=== PATIENT | female | born 1985 | race Two or more races ===

== ENCOUNTER 2021-02-25 08:56 | Outpatient (CLI) | payer OTHER ==
[2021-02-25 10:10] LABS: HGB - HEMOGLOBIN 11.8 g/dL (12.0-16.0); MEAN CORPUSCULAR HEMOGLOBIN 29.7 pg (27.0-31.0); MEAN CORPUSCULAR HGB CONC 33.7 g/dL (32.0-36.0); MEAN CORPUSCULAR VOLUME 88.2 fL (81.0-99.0); MEAN PLATELET VOLUME 9.8 fL (7.9-10.8); RED BLOOD COUNT 3.97 10^6/uL (4.20-5.40); RED CELL DISTRIBUTION WIDTH 13.2 % (12.0-15.0)
== END 2021-02-25 08:57 | disposition home or self-care (01) ==
LOC: LAB 08:56
PROVIDERS: ATTEND Nurse Practitioner Obstetrics & Gynecology
DX: Z34.90 Encounter for supervision of normal pregnancy, unspecified, unspecified trimester (principal); Z36.89 Encounter for other specified antenatal screening
CPT/HCPCS: 36415; 82950; 85027; 86787

== ENCOUNTER 2021-03-15 18:54 | Outpatient (CLI) | payer OTHER ==
--- NOTE | 2021-03-16 15:59 | Ultrasound Report ---
PROCEDURE: OB Limited INDICATIONS: Plac location not noted on OS report. OUTSIDE/PRIOR DATING DATA: Last menstrual period (LMP): Unknown. LMP-based estimated date of delivery (LEDY): Unknown. First dating scan (date and location): 10/07/2020. Estimated date of delivery (LEDY) from first dating scan: 04/24/2021. TECHNIQUE: Real-time scanning was performed of the fetus, with image documentation. Endovaginal scanning: Not needed COMPARISON: None. FINDINGS: A single living intrauterine gestation is present. Presentation: Vertex Placenta: Placental position is anterior, without previa. Amniotic fluid index: 14.1 cm, 50th percentile for gestational age. heart rate: 144 beats per minutes. Maternal cervical canal: 3.2 cm long; normal length is 2.5 cm or more. Estimated gestational age from initial scan: Reportedly 34 weeks 2 days.. IMPRESSION: Placental location is anterior. Amniotic fluid volume is normal. Cervical length is norm al also, without funneling. Reviewed by: Sarthak Alejandre MD on 03/16/2021 3:58 PM PDT Approved by: Sarthak Alejandre MD on 03/16/2021 3:58 PM PDT Station ID: [id number]
== END 2021-03-15 18:55 | disposition home or self-care (01) ==
LOC: DI 18:54
PROVIDERS: ATTEND Nurse Practitioner Obstetrics & Gynecology
DX: Z34.00 Encounter for supervision of normal first pregnancy, unspecified trimester (principal); Z36.89 Encounter for other specified antenatal screening

== ENCOUNTER 2021-03-26 13:42 | Outpatient (CLI) | payer OTHER ==
[2021-03-26 13:53] LABS: HCT - HEMATOCRIT 35.1 % (37.0-47.0); HGB - HEMOGLOBIN 11.5 g/dL (12.0-16.0); MEAN CORPUSCULAR HEMOGLOBIN 28.5 pg (27.0-31.0); MEAN CORPUSCULAR HGB CONC 32.8 g/dL (32.0-36.0); MEAN CORPUSCULAR VOLUME 87.1 fL (81.0-99.0); MEAN PLATELET VOLUME 10.4 fL (7.9-10.8); RED BLOOD COUNT 4.03 10^6/uL (4.20-5.40); RED CELL DISTRIBUTION WIDTH 13.2 % (12.0-15.0); WHITE BLOOD COUNT 5.8 x10^3/uL (4.8-10.8)
[2021-03-26 14:06] LABS: ALBUMIN/GLOBULIN RATIO 0.8 (1.0-2.2); BILIRUBIN,TOTAL 0.5 mg/dL (0.2-1.0); CALCIUM 8.9 mg/dL (8.5-10.3); CREATININE 0.5 mg/dL (0.4-1.0); POTASSIUM 3.8 mmol/L (3.5-5.0); TOTAL PROTEIN 6.6 g/dL (6.7-8.2)
== END 2021-03-26 13:43 | disposition home or self-care (01) ==
LOC: LAB 13:42
PROVIDERS: ATTEND Nurse Practitioner Obstetrics & Gynecology
DX: I95.9 Hypotension, unspecified (principal)
CPT/HCPCS: 36415; 80053; 85027

== ENCOUNTER 2021-03-30 08:00 | Outpatient (CLI) | payer OTHER | END 2021-03-30 23:59 | disposition home or self-care (01) | LOC: LAB.WC 08:00 | PROVIDERS: ATTEND Nurse Practitioner Obstetrics & Gynecology | DX: Z36.85 Encounter for antenatal screening for Streptococcus B (principal) | CPT/HCPCS: 87797 ==

== ENCOUNTER 2021-04-08 16:53 | Outpatient (CLI) | payer OTHER ==
--- NOTE | 2021-04-09 10:05 | Ultrasound Report ---
PROCEDURE: OB F/U or Repeat INDICATIONS: UTERINE SIZE DISCREPANCY OUTSIDE/PRIOR DATING DATA: Last menstrual period (LMP): Not available. LMP-based estimated date of delivery (LEDY): Not available. First dating scan (date and location): 10/07/2020. Estimated date of delivery (LEDY) from first dating scan: 04/24/2021. TECHNIQUE: Real-time scanning was performed of the fetus, with image documentation and biometric measurements. Endovaginal scanning: Not needed COMPARISON: Vertex FINDINGS: General: A single living intrauterine gestation is present. Presentation: Vertex Placenta: Placental position is anterior, without previa. Amniotic fluid index: 11.6 cm, normal for gestational age. heart rate: 125 beats per minute. Maternal cervical canal: 3.4 cm long; normal length is 2.5 cm or more. biometrics: Biparietal diameter: 9.0 cm, 36 weeks 3 days Head circumference: 32.9 cm, 37 weeks 3 days Abdominal circumference: 33.5 cm, 37 weeks 3 days Femur length: 7.3 cm, 37 weeks 2 days Estimated gestational age from initial scan: 37 weeks 5 days. Composite gestational age from present scan: 37 weeks 1 day Estimated weight and percentile: 3159 g, 48th percentile Measurement variability in biometric dating: +/- 10 days from 12-20 weeks gestation, +/- 2 weeks from 20-30 weeks gestation, +/- 3 weeks at 30 weeks gestation or more. Other: No anomaly seen.. IMPRESSION: Current estimated weight is normal at the 48th percentile. Amniotic fluid volume i s also normal at the 32nd percentile. No anomaly seen. Reviewed by: Sarthak Alejandre MD on 04/09/2021 10:04 AM PDT Approved by: Sarthak Alejandre MD on 04/09/2021 10:04 AM PDT Station ID: [id number]
== END 2021-04-08 16:54 | disposition home or self-care (01) ==
LOC: DI 16:53
PROVIDERS: ATTEND Nurse Practitioner Obstetrics & Gynecology
DX: O26.843 Uterine size-date discrepancy, third trimester (principal); Z3A.37 37 weeks gestation of pregnancy

== ENCOUNTER 2021-04-25 07:35 | Inpatient (IN) | payer OTHER ==
[2021-04-25] MEDS ORDERED: OXYTOCIN 10 UNIT/ML VIAL IM PRN (08:30)
[2021-04-25] MEDS ORDERED: OXYTOCIN/SODIUM CHLORIDE 500 ML IV PRN (08:30)
[2021-04-25] MEDS ORDERED: CARBOPROST TROMETHAMINE 250 MCG/ML AMP IM PRN (08:30)
[2021-04-25] MEDS ORDERED: LIDOCAINE-MPF 1% 30 ML VIAL ID PRN (08:30)
[2021-04-25] MEDS ORDERED: miSOPROStoL 200 MCG TABLET BC PRN (08:30)
[2021-04-25] MEDS ORDERED: SODIUM CHLORIDE FLUSH 0.9% 10 ML SYRINGE IVP PRN (08:30)
[2021-04-25] MEDS ORDERED: ONDANSETRON 4 MG/2 ML VIAL IVP PRN (08:30)
[2021-04-25] MEDS ORDERED: METHYLERGONOVINE 0.2 MG/ML VIAL IM PRN (08:30)
[2021-04-25] MEDS ORDERED: TRANEXAMIC ACID IN NACL 1,000 MG/100 ML BAG IV PRN (08:30)
--- NOTE | 2021-04-25 08:35 | HISTORY & PHYSICAL EXAMINATION ---
Admit History - Visit Reason Visit Reason: Other - : 3 Parity: 2 Premature: 0 Ectopic: 0 : 0 Care: positive: [facility] Risk/History: positive: None Complications This : positive: None Smoking Status: Never smoker - Mother's Labs Mother's Blood Type: positive: A Mother's RH: positive: Positive GBS: positive: Group B Step Negative Rubella Status: positive: Immune Review of Systems - Constitutional Constitutional: denies: Fever, Chills, Malaise - Eyes Eyes: denies: Blurred vision, Spots in vision, Dipolpia - Cardiovascular Cariovascular: denies: Irregular heart rate, Palpitations, Chest pain, Edema - Respiratory Respiratory: denies: Cough, SOB at rest - Gastrointestinal Gastrointestinal: denies: Constipation, Diarrhea, Change in bowel habits - Integumentary Integumentary: denies: Rash, Pruritis - Neurological Neurological: denies: Headache Physical - Abdominal Exam Vital Signs: Temp Pulse Resp BP Pulse Ox 36.7 C 77 16 132/74 H 04/25/21 07:47 04/25/21 07:47 04/25/21 07:47 04/25/21 07:47 Contraction Frequency (min/apart): rare Contraction Intensity: positive: Mild Uterine Resting Tone: positive: Soft - Monitoring Heart Rate Baseline: 125 Strip Review: positive: Category I - Presentation Presentation: positive: Vertex - Vaginal Exam Membranes: positive: Membranes intact Dilation (in cm): 3 Effacement (%): 50 Station: positive: 0 Cervical Position: positive: Posterior - Speculum Exam Speculum Exam Performed: positive: No Findings: positive: Other Plan for Labor - Plan For Labor I expect patient to be DC'd or transferred within 96 hours.: Yes Plan for Labor: HPI: This 35yo @ 40.1wks gestation by 11.4wk U/S and unsure LMP presents to [facility] for elective induction of labor. She denies vaginal bleeding or leakage of fluid. She reports occasional contractions when she is up walking around but denies anything painful or consistent and states they feel more like mindy suarez than real contractions. She reports +FM. She is supported today by her Amador. Upon arrival her cervix was noted to be 3/50/0 and vertex with the head well applied to her cervix. AROM occurred for a moderate amount of clear fluid. She has been a patient of [facility] through the duration of her which has remained uncomplicated. She will be admitted to [facility] for active management. She intends an epidural for pain management. Dating criteria: LMP unknown Initial U/S @ 11.4wks dates with LEDY 04/24/2021 Serial Exams - agree Medications: PNV Allergies: Codeine (critical); Morphine (critical) OB History: G1: 11/18/2015 @ 40.4wks; 7lb1oz female; epidural G2: 10/06/2017 @ 40wks; 6lb 15oz male; epidural G3: current PMHx: endometriosis; high liver enzymes Surgical Hx: cholecystectomy Social Hx: Never smoker. No ETOH or IVDA. Dipika. Family Hx: Diabetes- Father; PGM course: LMP: 07/24/2020 is stated based on 08/07/2021 conception date. Pt unsure of LMP LEDY by LMP: 04/30/2021 Initial U/S @ 11.4wks provides LEDY 04/24/2021 FINAL LEDY: 04/24/2021 A pos/Rubella immune VZV: immune Genetic testing: Panorama - negative; AFP neg FAS: 11/25/2021 - WNL per impression report. 3VC without visual malformations. No mention of placental location - f/u ordered. placenta location f/u US 03/15/2021- Anterior placenta, no previa. Growth US 04/09/21- DAHLIA WNL. EFW 48%tile Glucola 93 Influenza: received outside clinic this season TDAP 02/24/2021 GBS @ 36.3 Negative HSV: denies in self and partner Breast pump Rx- provided MOD: Anticipate ; daughter Pretty, son Steve, Maggi English; It's a GIRL! - no name yet (middle name Marah); desires epidural; ; Hoping for elective IOL 39-40wks for childcare purposes. pp contraception: tubal ligation - on base pap: 10/2020-neg Physical Exam: Normocephalic, atraumatic Heart RRR w/o M/G/R Lungs CTAB Abdomen gravid, soft, nontender EFW 3200g FHR baseline 125, moderate variability, + accels, no decels Rare contractions via tocometry which palpate mild with soft resting tone SVE 3/50/0, posterior, medium consistency. Vertex. AROM moderate amount of clear fluid Bilateral LE's no edema Mood is good. Assessment: 35yo @ 40.1wks gestation by 11.4wk U/S Elective IOL GBS neg FHR Category I Plan: Expectant management x 4 hours, then evaluate for cervical ripening with misoprostol vs pitocin. Continuous monitoring. Encouraged ambulation and position changes. Jacuzzi PRN. Nitrous oxide PRN. Epidural per maternal request. Anticipate .
[2021-04-25 08:43] LABS: BASOPHILS % (AUTO) 0.5 %; EOSINOPHILS # (AUTO) 0.1 10^3/uL (0.0-0.7); EOSINOPHILS % (AUTO) 2.2 %; HCT - HEMATOCRIT 34.8 % (37.0-47.0); HGB - HEMOGLOBIN 11.4 g/dL (12.0-16.0); LYMPHOCYTES # (AUTO) 2.3 10^3/uL (1.5-3.5); LYMPHOCYTES % (AUTO) 35.2 %; MEAN CORPUSCULAR HEMOGLOBIN 27.9 pg (27.0-31.0); MEAN CORPUSCULAR HGB CONC 32.8 g/dL (32.0-36.0); MEAN CORPUSCULAR VOLUME 85.3 fL (81.0-99.0); MONOCYTES # (AUTO) 0.4 10^3/uL (0.0-1.0); MONOCYTES % (AUTO) 6.5 %; NEUTROPHILS # (AUTO) 3.6 10^3/uL (1.5-6.6); NEUTROPHILS % (AUTO) 55.1 %; PLT - PLATELET COUNT 202 10^3/uL (130-450); RED BLOOD COUNT 4.08 10^6/uL (4.20-5.40); RED CELL DISTRIBUTION WIDTH 13.7 % (12.0-15.0); WHITE BLOOD COUNT 6.4 x10^3/uL (4.8-10.8)
[2021-04-25] MEDS ORDERED: LACTATED RINGERS 1,000 ML IV SCH (09:00)
[2021-04-25] MEDS ORDERED: SODIUM CHLORIDE FLUSH 0.9% 10 ML SYRINGE IVP SCH (09:00)
[2021-04-25] MEDS ORDERED: OXYTOCIN/SODIUM CHLORIDE 500 ML IV SCH (13:00)
[2021-04-25] MEDS ORDERED: ROPIVACAINE 0.2% 200 MG/100 ML BAG EP ONE (15:36)
--- NOTE | 2021-04-25 16:04 | PROVIDER PROGRESS NOTE ---
Labor Progress Note - Uterine Monitoring Contraction Frequency (min/apart): 3-4 Contraction Intensity: positive: Moderate Uterine Resting Tone: positive: Soft - Monitoring Monitor Mode: positive: External ultrasound Heart Rate Baseline: 120 Heart Rate Variability: positive: Moderate (6-25 bmp) Accelerations: positive: Present, 15x15 Decelerations: positive: None Strip Review: positive: Category I - Vaginal Exam Dilation (in cm): 5 Effacement (%): 100 Station: 0 Cervical Position: Midposition - Labor Progress Note Labor Progress Note/Additional Text: S: Coping well with contractions at the moment but requests epidural as soon as possible. Her is supportive at the bedside. O: FHR baseline 120, moderate variability, + accels, no decels Contractions palpate moderate every 3-4 minutes with soft resting tone Pitocin @ 4mU/mL A: 35yo @ 40.1wks gestation by 11.4wk U/S GBS neg Active labor FHR Category I P: Anesthesia notified for placement of epidural. Continuous monitoring. Continue pitocin with titration per protocol for induction of labor. Encouraged position changes in bed on peanut ball. Anticipate . Pt verbalized understanding and agrees to above plan. She denies further questions or concerns at this time.
[2021-04-25] MEDS ORDERED: LIDOCAINE-PF 2% 10 ML AMP SUBQ ONE (16:18)
[2021-04-25] MEDS ORDERED: fentaNYL 100 MCG/2 ML VIAL ONE (16:40)
[2021-04-25] MEDS ORDERED: HYDROCORTISONE 1% CREAM 28 GM TUBE PR PRN (17:51)
[2021-04-25] MEDS ORDERED: WITCH HAZEL/GLYCERIN 1 PAD TOP PRN (17:51)
--- NOTE | 2021-04-25 18:07 | DELIVERY NOTE ---
Delivery Note - Labor Labor: positive: Augmented by oxytocin, Induced by oxytocin - Delivery Method Delivery Method: positive: Spontaneous vaginal delivery - Presentation Presentation: positive: Vertex, MICHAEL - left occiput anterior - Nuchal Cord Nuchal Cord: positive: None - Amniotic Fluid Description Amniotic Fluid Description: positive: Clear - Episiotomy Type Episiotomy Type: positive: None - Laceration Laceration: positive: None - Delivery Outcome Delivery Outcome: positive: Livebirth - [place] : positive: Placed in direct skin contact with mother, Stimulated, Warmed , [place] used [place] sex: positive: Female - Cord Cord: positive: 3 vessels - Placenta Placenta: positive: Intact, Spontaneous - Estimated Blood Loss Estimated Blood Loss (in cc): 150 - Post Delivery Events Post Delivery Events: positive: No post delivery events - Delivery Comments (Free Text/Narrative) Delivery Comments (Free Text/Narrative): Labor: This 35yo @ 40.1wks gestation by 11.4wk U/S presented to [facility] on 04/25/2021 for elective induction of labor. Upon arrival cervix was 3/50/0 and vertex. AROM occurred at 0836 and was noted to be a moderate amount of clear fluid. Pitocin initiated for labor augmentation for a maximum infustion rate of 2mU/mL. FHR pattern maintained a Category I pattern throughout labor. Epidural placed per maternal request. Pt progressed to c/c/+1 @ 1729 with onset of pushing at 1731. : Normal of a viable female infant on 04/25/2021 @ 1733. No nuchal cord. The was placed on maternal abdomen, stimulated, dried, and placed skin to skin. 's were 9/9 at 1 and 5 minutes respectively. Ptiocin administered via IV for hemostasis. The umbilical cord was allowed to stop pulsating at which time it was doubly clamped by CNM and cut by FOB. Cord blood was obtained. 3VC. Fundal massage and gentle cord traction applied for active management of the third stage. Placenta delivered spontaneously and intact at 1738. EBL 150mL. Fourth stage: Uterine fundus firm and there is no excessive bleeding. The perineum, vagina, and cervix were inspected and noted to be intact. Skin to skin contact maintained. Family bonding well. Both mother and baby were left in stable condition.
[2021-04-25] MEDS ORDERED: DOCUSATE SODIUM 100 MG CAPSULE PO SCH (21:00)
[2021-04-25] MEDS: IBUPROFEN 800 MG TABLET PO SCH (21:16)
[2021-04-25] MEDS: ACETAMINOPHEN 500 MG TABLET PO SCH (21:16)
[2021-04-26] MEDS: IBUPROFEN 800 MG TABLET PO SCH ×2 (04:15→12:17)
--- NOTE | 2021-04-26 08:40 | Discharge Plan ---
Discharge Plan Problem Reviewed?: Yes Disposition: Home, Self Care Condition: Good Diet: Regular Activity Restrictions: No Restrictions Shower Restrictions: No Driving Restrictions: No Weight Bearing: Full Weight No Smoking: If you smoke, Please STOP! Call for help. Follow-up with: Annabelle Walsh CNM, ARNP [Provider Admit Priv/Credential] -
[2021-04-26 08:48] VITALS: BP 105/60
--- NOTE | 2021-04-26 09:11 | PROVIDER PROGRESS NOTE ---
Subjective - Subjective Subjective: FINAL PROGRESS NOTE: S: Bonding well with baby. without difficulty. Pain well controlled with oral medications. Bleeding decreased and is light. She is ambulating and urinating without difficulty and she is tolerating a regular diet. She desires to be discharged home today at 24 hours . is supportive at the bedside. O: BP 105/60, T 36.6, RR 16, HR 81 Heart RRR w/o M/G/R, lungs CTAB, abdomen soft and nontender with fundus firm at U-1, perineum intact, light lochia rubra, bilateral LE's no edema. A: 35yo -->P3 PPD#1 s/p TSVD viable female infant Normal recovery P: Reviewed pp self care and warning s/sx. Pt has emergency contact number. Encouraged continuation of PNV while Continue taking ibuprofen and tylenol OTC as needed for pain management. F/u in 1 week with myself at [facility] for routine pp visit or sooner PRN. Pt verbalized understanding and agrees to above plan. She denies further questions or concerns at this time. Objective - Vital Signs/Intake & Output Vital Signs: Vital Signs x48h Temp Pulse Resp BP Pulse Ox 04/26/21 08:46 36.6 C 81 16 105/60 100 04/26/21 05:30 76 16 118/80 04/26/21 01:30 88 18 112/72 Intake & Output: Intake & Output 04/23/21 04/24/21 04/25/21 04/26/21 23:59 23:59 23:59 23:59 Intake Total 1000 Output Total 100 Balance 900 - Lab Results Fish Bones: 04/25/21 08:15
--- NOTE | 2021-04-26 09:16 | DISCHARGE SUMMARY ---
Discharge Summary Condition at Discharge: Good Discharge Disposition: 01 Home, Self Care - HOSPITAL COURSE Hospital Course: Date of Admission: 04/25/2021 Date of Discharge: 04/26/2021 Diagnosis on Admission: 1. 35yo @ 40.1wks gestation 2. Elective IOL 3. GBS negative Diagnosis on Discharge: 1. 35yo PPD#1 s/p TSVD viable female 2. 3. Normal recovery Brief History: She is a patient of [facility] who presented on 04/25/2021 for elective induction of labor. Upon arrival her cervix was 3/50/0 and vertex. AROM occurred and was noted to be a moderate amount of clear fluid. She was augmented with pitocin for a maximum infusion rate of 2mU/mL. Epidural placed per maternal request. She progressed to spontaneously deliver a viable female infant on 04/25/2021 at 1733. Apgars were 9/9 at 1 and 5 minutes respectively. The wilder neum, vagina, and cervix were inspected and noted to be intact. EBL 150mL. She has been doing well in her course. She is ambulating and tolerating a regular diet. She is urinating without difficulty and her lochia is normal. Her pain is well controlled with oral medications. She will be discharged home today on day number 1 with instructions to continue taking her vitamin while and to continue taking ibuprofen and tylenol over the counter as needed for pain management. She intends to follow up with myself at [facility] in 1 week for routine visit or sooner if needed. She has been given precautions to call if she has any worsening fevers, chills, abdominal pain, increased bleeding, or foul smelling vaginal lochia. - ALLERGIES Allergies/Adverse Reactions: Allergies Allergy/AdvReac Type Severity Reaction Status Date / Time codeine AdvReac Nausea Verified 04/25/21 11:57 - LABS Result Diagrams: 04/25/21 08:15
[2021-04-26] MEDS: ACETAMINOPHEN 500 MG TABLET PO SCH (12:17)
--- NOTE | 2021-04-26 19:28 | Labor Flowsheet ---
Labor Flowsheet Datetime Report Generated by CPN: 04/26/2021 19:27 Datetime: 04/26/2021 08:32 VITAL SIGNS NBP Sys/Dulce/Mean (mmHg): 105 : 60 : 71 Pulse: 86 Datetime: 04/25/2021 19:19 SpO2 (%): 99 Datetime: 04/25/2021 18:00 Respirations: 16 Temperature (C): 36.8 Temperature Route: Oral Datetime: 04/25/2021 17:50 MEDICATIONS Pitocin (milliunits): Decreased to @ 75 Datetime: 04/25/2021 17:47 Stage of : Recovery Datetime: 04/25/2021 17:31 STAGE 2 Pushing: Coached on Pushing Pushing Position: Pushing with Contractions Pushing Progress: Descent with Pushing Datetime: 04/25/2021 17:30 UTERINE ACTIVITY Monitor Mode: External Frequency (min): 2-3 Quality: Strong Duration (sec): 70-90 Pattern: Normal: <= 5 Contractions in 10 Minutes Resting Tone (Palpate): Relaxed ASSESSMENT A Monitor Mode: Telemetry FHR Baseline Rate : 130 Variability: Moderate 6-25 bpm Accelerations: None Decelerations: Early Category: Category I Datetime: 04/25/2021 17:29 Vaginal Exam Comments: Complete Datetime: 04/25/2021 17:24 LaborFlag: Labor Datetime: 04/25/2021 16:57 COMMUNICATION Communication: Report Given to @ sharon cira cnm Notification Reason: Labor Status Communication Comments: will be in to evalute pt Datetime: 04/25/2021 16:51 VAGINAL EXAM Dilatation (cm): 9.0 Effacement (%): 100 Station: 1 Exam by: edurado Gonzalez Rn, Lexi Guerrero RN Vaginal Bleeding: None Cervix, Consistency: Soft Cervix, Position: Anterior Datetime: 04/25/2021 16:45 Comments: Interrupted strip due to maternal movement Datetime: 04/25/2021 16:41 Anesthesia Comments: Fentanyl 100mcg via epidural by POLICE SURGEON Datetime: 04/25/2021 16:15 FHR Baseline Changes: No Baseline Change Datetime: 04/25/2021 16:05 Epidural Procedure: Loading Dose Epidural Procedure Other: Pump Started Datetime: 04/25/2021 15:49 ANESTHESIA Anesthesia Plans: Epidural Epidural Positioning: Sitting Datetime: 04/25/2021 15:45 Monitor Interventions for FHR: Ultrasound Adjusted Datetime: 04/25/2021 14:47 Monitor Interventions for UA: [place] Adjusted Datetime: 04/25/2021 14:45 Contraction Comments: Patient reports contractions q2-3. TOCO adjusted to leaf size picker contractions as reported by patient Datetime: 04/25/2021 14:09 Patient Care Comments: Up to bathroom Datetime: 04/25/2021 13:30 Pitocin Checklist: At Least 1 Acceleration of 15 bpm x 15 Seconds in 30 Minutes or Adequate Variabi lity; No More than 1 Late Deceleration Occurred in Past 30 Minutes; No More than 2 Variable Decelerat ions > 60 Seconds in Duration and decreasing >60 bpm in 30 minutes; No More than 5 Uterine Contractio ns in 10 Minutes for any 20 Minute Interval; Uterus Palpates Soft between Contractions Datetime: 04/25/2021 13:03 PATIENT CARE IV/Blood Work: IV Infusing per Order Datetime: 04/25/2021 12:31 Provider Notified (Name): Sharon Cira, CNM Datetime: 04/25/2021 12:15 Oxygen Method: Room Air Patient Position/Activity: Walking
== END 2021-04-26 19:17 | disposition home or self-care (01) | DRG 807 ==
LOC: WFO 07:35 → FBP 07:40 → WFO 08:29 → FBP 08:30
PROVIDERS: ADMIT Nurse Practitioner Obstetrics & Gynecology; ATTEND Nurse Practitioner Obstetrics & Gynecology
PROC: 10E0XZZ Delivery of Products of Conception, External Approach (ICD-10-PCS; principal; 2021-04-25)
PROC: 10907ZC Drainage of Amniotic Fluid, Therapeutic from Products of Conception, Via Natural or Artificial Opening (ICD-10-PCS; 2021-04-25)
DX: O48.0 Post-term pregnancy (principal); Z37.0 Single live birth; Z3A.40 40 weeks gestation of pregnancy; Z90.49 Acquired absence of other specified parts of digestive tract
CPT/HCPCS: 36415; 85025; A9270; J7120

== ENCOUNTER 2023-10-16 16:40 | Emergency (ER) | payer OTHER ==
[2023-10-16 17:02] VITALS: O2SAT 100
[2023-10-16] MEDS ORDERED: DEXAMETHASONE 10 MG/ML VIAL PO STA (17:58)
[2023-10-16] MEDS ORDERED: CHERRY SYRUP 10 ML UDC PO ONE (17:58)
--- NOTE | 2023-10-16 18:02 | ED Physician Documentation ---
History of Present Illness - Stated complaint Stated Complaint: ARM/LEG PX - Chief complaint Chief Complaint: General - History obtained from History obtained from: Patient - History of Present Illness Timing: How many weeks ago (4) - Additonal information Additional information: 38-year-old Alaina Manning gives a history of pain to her upper and lower extremities related to excessive use and this has been especially bad over the past month. She is in the process of moving and has 3 small children. She indicates that she felt well for 3 days did a lot of extra work and now has symptoms bad enough that she is not able to sleep well. She does not do well with pain medication and she has not gotten relief with the use of Tylenol or ibuprofen. She has had these symptoms previously for a number of years they are usually brief in nature and she believes these are persistent now and she is wondering why they are happening. She does tend to overdo it working. Review of Systems Constitutional: denies: Fever Ears: denies: Ear pain Nose: denies: Congestion Throat: denies: Sore throat Cardiac: denies: Chest pain / pressure, Palpitations Respiratory: denies: Dyspnea, Cough GI: denies: Abdominal Pain, Nausea, Vomiting, Constipation, Diarrhea : denies: Dysuria, Frequency Skin: denies: Rash Musculoskeletal: reports: Extremity pain. denies: Neck pain, Back pain, Extremity swelling Neurologic: denies: Generalized weakness, Focal weakness, Numbness PD PAST MEDICAL HISTORY - Past Medical History Past Medical History: No - Past Surgical History Past Surgical History: No - Present Medications Home Medications: Ambulatory Orders Medication Instructions Recorded Confirmed traMADol [Ultram] 50 - 100 mg PO Q6H PRN #20 tablet 10/16/23 - Allergies Allergies/Adverse Reactions: Allergies Allergy/AdvReac Type Severity Reaction Status Date / Time codeine AdvReac Nausea Verified 10/16/23 16:51 - Social History Does the pt smoke?: No Smoking Status: Never smoker Does the pt drink ETOH?: No Does the pt have substance abuse?: No - Immunizations Immunizations are current?: Yes - POLST Patient has POLST: No PD ED PE NORMAL - Vitals Vital signs reviewed: Yes (hypertensive ) - General General: Alert and oriented X 3, No acute distress, Well developed/nourished, Other (appears as a healthy young woman in no distress) - HEENT HEENT: Atraumatic, PERRL, EOMI - Neck Neck: Supple, no meningeal sign, No bony TTP - Respiratory Respiratory: No respiratory distress - Derm Derm: Normal color, Warm and dry, No rash - Extremities Extremities: No deformity, No edema, No calf tenderness / cord, Other (normal ROM) - Neuro Neuro: Alert and oriented X 3, manufacturing manager 2-12 intact, No motor deficit, No sensory deficit, Normal speech Eye Opening: Spontaneous Motor: Obeys Commands Verbal: Oriented GCS Score: 15 - Psych Psych: Normal mood, Normal affect Results - Vitals Vitals: Vital Signs - 24 hr 10/16/23 10/16/23 16:51 19:25 Temperature 36.5 C Heart Rate 78 72 Respiratory 16 16 Rate Blood Pressure 140/80 H 123/67 O2 Saturation 100 100 Oxygen O2 Source Room air - Labs Labs: Laboratory Tests 10/16/23 10/16/23 10/16/23 18:08 18:08 18:08 WBC 7.7 RBC 4.50 Hgb 13.5 Hct 40.2 MCV 89.3 MCH 30.0 MCHC 33.6 RDW 13.4 Plt Count 335 MPV 9.8 Neut # (Auto) 4.2 Lymph # (Auto) 2.7 [place] # (Auto) 0.5 Eos # (Auto) 0.2 Baso # (Auto) 0.0 Absolute Nucleated RBC 0.00 Nucleated RBC % 0.0 ESR 10 Sodium 137 Potassium 3.5 Chloride 102 Carbon Dioxide 27 Anion Gap 8.0 BUN 14 Creatinine 0.6 Estimated GFR (MDRD) 113 Glucose 91 Calcium 9.6 Total Bilirubin 0.3 AST 32 ALT 71 H Alkaline Phosphatase 82 Total Creatine Kinase 132 C-Reactive Protein 0.5 Total Protein 7.3 Albumin 4.7 Globulin 2.6 Albumin/Globulin Ratio 1.8 Lipase 18 PD Medical Decision Making - ED course Complexity details: reviewed results, re-evaluated patient, considered differential, d/w patient ED course: 38-year-old female with what appears to be over use muscle soreness by history is having some trouble with excepting this as the possible explanation for her symptoms. She goes on to explain how she has had elevation in the AST and ALT previously and her blood work and she is wondering if there is anything we can do to figure out if there is a problem with her muscles. We have drawn some blood. We will check her AST ALT CK ESR and CRP.Everyone of the studies is normal and I have encouraged the patient to except the fact that she has overdone it. Departure - Departure Disposition: 01 Home, Self Care Clinical Impression: Generalized muscle ache Condition: Stable Instructions: Muscle Spasm, ED Muscle Pain Leg Cramps, NARCOTIC, Oral Follow-Up: MICAH Erickson [Provider Group] Prescriptions: traMADol [Ultram] 50 - 100 mg PO Q6H PRN #20 tablet PRN Reason: Pain Comments: Alaina, today we did not find any abnormalities with your muscle enzymes liver enzymes or inflammatory markers. By history it looks like you overdo it with your muscles and have pain that will last for days. Today we provided you with a dose of dexamethasone which will take several hours to be effective it may be effective at improving your overall pain. For tonight I have E scribed some tramadol to the [facility] in [place]. Discharge Date/Time: 10/16/23 19:25
[2023-10-16 18:16] LABS: BASOPHILS % (AUTO) 0.5 %; EOSINOPHILS # (AUTO) 0.2 10^3/uL (0.0-0.7); EOSINOPHILS % (AUTO) 2.8 %; HCT - HEMATOCRIT 40.2 % (37.0-47.0); HGB - HEMOGLOBIN 13.5 g/dL (12.0-16.0); LYMPHOCYTES # (AUTO) 2.7 10^3/uL (1.5-3.5); LYMPHOCYTES % (AUTO) 35.4 %; MEAN CORPUSCULAR HGB CONC 33.6 g/dL (32.0-36.0); MEAN CORPUSCULAR VOLUME 89.3 fL (81.0-99.0); MEAN PLATELET VOLUME 9.8 fL (7.9-10.8); MONOCYTES # (AUTO) 0.5 10^3/uL (0.0-1.0); MONOCYTES % (AUTO) 6.7 %; NEUTROPHILS # (AUTO) 4.2 10^3/uL (1.5-6.6); NEUTROPHILS % (AUTO) 54.3 %; PLT - PLATELET COUNT 335 10^3/uL (130-450); RED CELL DISTRIBUTION WIDTH 13.4 % (12.0-15.0); WHITE BLOOD COUNT 7.7 x10^3/uL (4.8-10.8)
[2023-10-16 18:34] LABS: ALBUMIN 4.7 g/dL (3.2-5.5); ALBUMIN/GLOBULIN RATIO 1.8 (1.0-2.2); BILIRUBIN,TOTAL 0.3 mg/dL (0.2-1.0); CALCIUM 9.6 mg/dL (8.5-10.3); CREATININE 0.6 mg/dL (0.6-1.3); CRP - C-REACTIVE PROTEIN 0.5 mg/dL (<0.5); POTASSIUM 3.5 mmol/L (3.5-4.5); TOTAL PROTEIN 7.3 g/dL (6.4-8.9)
[2023-10-16 19:29] VITALS: BP 123/67
== END 2023-10-16 19:25 | disposition home or self-care (01) ==
LOC: ED 16:40
DX: M79.10 Myalgia, unspecified site (principal)
CPT/HCPCS: 36415; 80053; 82550; 83690; 85025; 85651; 86140; 99283; A9270